=== PATIENT | female | born 1975 | race Caucasian/White ===

== ENCOUNTER 2017-08-23 19:41 | Emergency (ER) | payer OTHER ==
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
[2017-08-23 23:26] VITALS: BP 133/92
[2017-08-24] MEDS ORDERED: MOTRIN PO ONE (01:16)
[2017-08-24] MEDS ORDERED: FLEXERIL PO ONE (01:16)
[2017-08-24] MEDS ORDERED: NORCO 7.5/325 PO ONE (01:16)
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
== END 2017-08-24 02:44 | disposition home or self-care (01) ==
LOC: ED 19:41
DX: M25.511 Pain in right shoulder (principal); M25.512 Pain in left shoulder; M54.2 Cervicalgia; M54.5 Low back pain; V49.49XA Driver injured in collision with other motor vehicles in traffic accident, initial encounter; Y93.9 Activity, unspecified; Y92.9 Unspecified place or not applicable; Y99.9 Unspecified external cause status
CPT/HCPCS: 72040; 72100